=== PATIENT | male | born 2005 | race Hispanic/Latino ===

== ENCOUNTER 2024-07-04 13:58 | Emergency (ER) | payer OTHER ==
[~2024-07-04] VITALS: Ht 177.8 cm; Wt 79.4 kg
[2024-07-04] MEDS: CYCLOBENZAPRINE HCL 10 MG TABLET PO ONE (14:31)
[2024-07-04] MEDS: ibuPROFEN 800 MG TAB PO ONE (14:31)
[2024-07-04] MEDS ORDERED: CYCL-309 PO (15:56)
[2024-07-04] MEDS ORDERED: IBUP-2077 PO (15:56)
[2024-07-04 16:28] VITALS: BP 136/80; PULSE 78; RESP 16; TEMP 98; O2SAT 98
== END 2024-07-04 16:31 | disposition home or self-care (01) ==
LOC: EDH 13:58
DX: S16.1XXA Strain of muscle, fascia and tendon at neck level, initial encounter (principal); S39.012A Strain of muscle, fascia and tendon of lower back, initial encounter; M41.9 Scoliosis, unspecified; Z98.890 Other specified postprocedural states; V89.2XXA Person injured in unspecified motor-vehicle accident, traffic, initial encounter; Y93.89 Activity, other specified; Y92.488 Other paved roadways as the place of occurrence of the external cause; Y99.8 Other external cause status
CPT/HCPCS: 72040; 72100